=== PATIENT | male | born 1995 | race Caucasian/White ===

== ENCOUNTER → 2018-10-27 | Outpatient (CLI) | payer OTHER ==
[~2018-10-27] MED LIST: DOXY100T16 PO
--- NOTE | 2018-10-27 17:38 | REP ---
REASON: Testicular swelling. No pain. No trauma. PRIORS: None. The right testicle measures 4.9 x 2.7 x 3.2 cm and the left measures 4.6 x 2.4 x 2.8 cm. The testicular parenchymal echo pattern and vascular pattern is within normal limits bilaterally. Incidental note is made of bilateral spermatoceles, largest on the right measures 2 mm and the largest on the left measures 5 mm. Bilateral hydroceles are also noted, moderate on the right and minimal on the left. The right testicular RI is 0.56 and the left is 0.54. IMPRESSION: 1. Bilateral hydroceles as described above. 2. Incidental bilateral spermatoceles as described above. Electronically Signed by Raymond Knutson DO 10/27/2018 06:04 P
== END ==
LOC: M RAD 14:59
PROVIDERS: ATTEND Internal Medicine Hematology & Oncology
DX: N43.3 Hydrocele, unspecified (principal); N43.40 Spermatocele of epididymis, unspecified